=== PATIENT | male | born 1995 | race Caucasian/White ===

== ENCOUNTER 2018-04-28 17:26 | Emergency (ER) | payer OTHER ==
[~2018-04-28] VITALS: Ht 180.3 cm; Wt 95.5 kg
[2018-04-28] MEDS ORDERED: KETOROLAC TROMETHAMINE 10 MG TAB PO ONE (18:15)
--- NOTE | 2018-04-28 18:59 | REPVR ---
EXAM: CT Cervical Spine Without Contrast EXAM DATE/TIME: 04/28/2018 6:23 PM CLINICAL HISTORY: 22 years old, male; Injury or trauma; Fall; Initial encounter; Concussion /head injury; Additional info: Fell TECHNIQUE: Axial computed tomography images of the cervical spine without intravenous contrast. All CT scans at this facility use at least one of these dose optimization techniques: automated exposure control; mA and/or kV adjustment per patient size (includes targeted exams where dose is matched to clinical indication); or iterative reconstruction. Coronal and sagittal reformatted images were created and reviewed. COMPARISON: No relevant prior studies available. FINDINGS: Vertebrae: Alignment is essentially anatomic. The vertebral body heights are maintained. The facet joints are aligned. The posterior elements are intact. The occipital condyles show no evidence of fracture and demonstrate a normal relationship with the C1 lateral masses. No evidence of dens fracture. There is no evidence of acute cervical spine fracture. Foramen transversarium are intact. Discs/Spinal canal/Neural foramina: No blood within the central canal. No post-traumatic central canal stenosis. If the patient has any signs/symptoms related to the cord or if otherwise clinically warranted, correlation with MRI could be considered. Prevertebral Space: No prevertebral soft tissue swelling. Soft tissues: Unremarkable. Lungs: No acute findings in the demonstrated portions of the lung apices. IMPRESSION: No evidence of acute cervical spine fracture. No prevertebral soft tissue swelling. No blood within the central canal. No post-traumatic central canal stenosis. If the patient has any signs/symptoms related to the cord or if otherwise clinically warranted, correlation with MRI could be considered. Electronically signed by: Lupillo Smith On 04/28/2018 18:58:30 PM
--- NOTE | 2018-04-28 19:01 | REPVR ---
EXAM: CT Head Without Contrast EXAM DATE/TIME: 04/28/2018 6:23 PM CLINICAL HISTORY: 22 years old, male; Injury or trauma; Fall; Initial encounter; Concussion / head injury; Consciousness not specified; Additional info: Fell TECHNIQUE: Axial computed tomography images of the head/brain without contrast. All CT scans at this facility use at least one of these dose optimization techniques: automated exposure control; mA and/or kV adjustment per patient size (includes targeted exams where dose is matched to clinical indication); or iterative reconstruction. COMPARISON: No relevant prior studies available. FINDINGS: Brain: No CT evidence of acute cortical infarct. No mass effect. No edema. There is no evidence of parenchymal hemorrhage. No extra-axial collections. No subarachnoid blood. Ventricles: The ventricular system is midline and appropriate in size. No hydrocephalus. Bones/joints: There is no evidence of acute fracture. Sinuses: The demonstrated paranasal sinuses are free of air-fluid level or suspicious mass. Mastoid air cells: Mastoids are free of acute inflammatory change. Soft tissues: No large soft tissue hematoma. Please correlate clinically. IMPRESSION: No acute intracranial injury demonstrated. No intracranial hemorrhage. No evidence of acute cortical infarct. No mass effect. No edema. Followup as clinically warranted. Electronically signed by: Lupillo Smith On 04/28/2018 19:01:34 PM
--- NOTE | 2018-04-28 19:10 | REP ---
Left elbow series: Four views. History: Injury in a fall. Findings: Four views of the left elbow demonstrate no evidence of joint effusion or fracture. Bones joints and soft tissues are unremarkable. Impression: Negative left elbow radiographs. Electronically Signed by Ricardo Hendrickson MD 04/28/2018 07:01 P
[2018-04-28 19:35] VITALS: BP 153/89
== END 2018-04-28 19:35 | disposition home or self-care (01) ==
LOC: M ED 17:26
DX: S09.90XA Unspecified injury of head, initial encounter (principal); M54.2 Cervicalgia; M70.22 Olecranon bursitis, left elbow; W07.XXXA Fall from chair, initial encounter; Y92.133 Barracks on military base as the place of occurrence of the external cause

== ENCOUNTER 2018-09-15 06:32 | Emergency (ER) | payer OTHER ==
[~2018-09-15] VITALS: Ht 180.3 cm; Wt 95.5 kg
[2018-09-15] MEDS ORDERED: PANTOPRAZOLE 40MG INJ (PROTONIX) (C9113) IV ONE (07:30)
[2018-09-15] MEDS ORDERED: ACETAMINOPHEN TAB 650MG DOSE (2X325MG) PO ONE (07:30)
[2018-09-15] MEDS ORDERED: GI COCKTAIL 50ML BTL(HYOSCYAMINE/MAALOX/LIDOCAINE VISCOUS)(1:3:1) PO ONE (07:30)
[2018-09-15 07:45] LABS: BASO % 0.3 % (0.0-1.0); EOS # 0.1 10^3/uL (0.0-0.50); EOS % 0.8 % (0.0-3.0); HEMATOCRIT 41.6 % (42.0-52.0); HEMOGLOBIN 14.5 g/dl (13.5-17.5); LYMPH # 0.6 10^3/uL (1.5-6.5); LYMPH % 6.2 % (24.0-44.0); MEAN CORPUSCULAR HEMOGLOBIN 30.8 pg (27.0-33.0); MEAN CORPUSCULAR HGB CONC 34.9 g/dl (32.0-36.5); MEAN CORPUSCULAR VOLUME 88.3 fl (80.0-96.0); MONO # 0.5 10^3/uL (0.0-0.8); MONO % 5.6 % (0.0-5.0); NEUTROPHILS # 8.3 10^3/uL (1.8-7.7); NEUTROPHILS % 86.8 % (36.0-66.0); PLATELET COUNT, AUTOMATED 221 10^3/uL (150-450); RED BLOOD COUNT 4.71 10^6/uL (4.30-6.10); WHITE BLOOD COUNT 9.6 10^3/uL (4.0-10.0)
[2018-09-15 07:55] LABS: ALBUMIN 3.9 GM/DL (3.2-5.2); ALT/SGPT 19 U/L (12-78); BILIRUBIN,DIRECT 0.2 MG/DL (0.0-0.2); BILIRUBIN,TOTAL 0.8 MG/DL (0.2-1.0); BLOOD UREA NITROGEN 14 MG/DL (7-18); CALCIUM LEVEL 8.5 MG/DL (8.5-10.1); CARBON DIOXIDE LEVEL 27 MEQ/L (21-32); CHLORIDE LEVEL 106 MEQ/L (98-107); CPK CREATINE PHOSPHOKINASE 352 U/L (39-308); CREATININE FOR GFR 1.15 MG/DL (0.70-1.30); FREE T4 1.09 NG/DL (0.76-1.46); GLOMERULAR FILTRATION RATE > 60.0 (>60); GLUCOSE, FASTING 124 MG/DL (70-100); LIPASE 88 U/L (73-393); MB/CK RELATIVE INDEX 0.57 (< OR =4); POTASSIUM SERUM 3.8 MEQ/L (3.5-5.1); SODIUM LEVEL 141 MEQ/L (136-145); TOTAL PROTEIN 7.3 GM/DL (6.4-8.2); TROPONIN I < 0.02 NG/ML (< 0.10)
[2018-09-15 08:02] LABS: INR 1.06; PROTHROMBIN TIME 13.9 SECONDS (12.1-14.4)
[2018-09-15 08:03] LABS: PARTIAL THROMBOPLASTIN TIME 28.1 SECONDS (25.4-37.6)
[2018-09-15 08:10] LABS: D-DIMER QUANT < 270 ng/ml (<500)
[2018-09-15 09:49] VITALS: BP 124/58
--- NOTE | 2018-09-15 12:07 | REP ---
CHEST: Two views. There is no evidence of acute infiltrate. No pleural effusion is seen. The heart is normal in size. The mediastinal silhouette is unremarkable. The visualized osseous structures are intact. IMPRESSION: No acute pulmonary disease. Electronically Signed by Michael Thakur MD 09/16/2018 10:53 A
--- NOTE | 2018-09-16 07:15 | ECGEPIP ---
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
== END 2018-09-15 09:55 | disposition home or self-care (01) ==
LOC: M ED 06:32
DX: R07.89 Other chest pain (principal); I45.19 Other right bundle-branch block
CPT/HCPCS: 36415; 71046; 80048; 80076; 82550; 82553; 83690; 84439; 84443; 84484; 85025; 85379; 85610; 85730; 93005; 93041; 94760; 96374; 99285; C9113